=== PATIENT | female | born 1975 | race Hispanic/Latino ===

== ENCOUNTER 2017-01-26 19:12 | Emergency (ER) | payer MEDICAID, OTHER ==
[2017-01-26 19:59] LABS: Basophils % (Auto) 0.9 % (0.0-1.8); Eosinophils % (Auto) 1.6 % (0.0-4.3); Hematocrit 34.5 % (30.3-42.9); Hemoglobin 11.2 gm/dl (10.1-14.3); Mean Corpuscular HGB Conc 33 % (30-34); Mean Corpuscular Hemoglobin 27 pg (28-32); Mean Corpuscular Volume 83 fl (79-97); Platelet Count 200 K/mm3 (140-440); Red Blood Count 4.17 M/mm3 (3.65-5.03); Red Cell Distribution Width 14.6 % (13.2-15.2); White Blood Count 5.5 K/mm3 (4.5-11.0)
[2017-01-26 21:05] LABS: Bilirubin,Urine NEG (Negative); Blood,Urine NEG (Negative); Ketones,Urine NEG (Negative); Leukocyte Esterase,Urine NEG (Negative); Mucus,Urine 1+ /HPF; Nitrite,Urine NEG (Negative); Protein,Urine <15 mg/dL mg/dL (Negative); Urobilinogen,Urine < 2.0 mg/dL (<2.0)
--- NOTE | 2017-01-27 10:30 | Emergency Department Report ---
HPI - General Chief Complaint: Vaginal Bleeding Time Seen by Provider: 01/27/17 10:28 - HPI HPI: PATIENT IS 16 WEEKS, , BROUGHT TO ER WITH VAGINAL BLEEDING SINCE YESTERDAY, MILD PELVIC CRAMPING. NO FEVER, NO LOSS OF AMNIOTIC FLUID. PATIENT HAS NOT YET SEEN CONCRETE GRINDER OPERATOR DURING THIS BECAUSE SHE JUST FOUND OUT 4 WEEKS AGO. SHE IS SCHEDULED TO SEE [facility] CONCRETE GRINDER OPERATOR THIS WEDNESDAY. ED Past Medical Hx - Past Medical History Previous Medical History?: Yes Hx Hypertension: No Hx Congestive Heart Failure: No Hx Diabetes: No Hx Deep Vein Thrombosis: No Hx Renal Disease: No Hx Sickle Cell Disease: No Hx Seizures: No Hx Asthma: No Hx COPD: No Hx HIV: No Additional medical history: still born November - Surgical History Past Surgical History?: Yes Additional Surgical History: cyst removal in stomach - Social History Smoking Status: Former Smoker Substance Use Type: None - Medications Home Medications: Home Medications Medication Instructions Recorded Confirmed Last Taken Type Nitrofurantoin [place]/M-Cryst 100 mg PO Q12HR #20 capsule 06/24/15 01/23/16 Unknown Rx [Macrobid CAP] Pnv with Ca,No.72/Iron/FA 1 each PO QDAY #30 tablet 06/24/15 01/23/16 1 Day Ago Rx [ Vitamin with Low Iron] ED Review of Systems ROS: Stated complaint: poss. pregnanat Other details as noted in HPI Comment: All other systems reviewed and negative Genitourinary: other (vaginal bleeding) Musculoskeletal: back pain Physical Exam - Physical Exam Vital Signs: Vital Signs 01/26/17 01/27/17 19:30 04:11 Temperature 98.8 F 98.2 F Pulse Rate 73 62 Respiratory 18 18 Rate Blood Pressure 107/59 104/59 O2 Sat by Pulse 99 100 Oximetry Physical Exam: vitals reviewed gen: alert and oriented x3 heent: perrla, eomi cv: rrr, nl s1, s2 lungs: cta bila abd: s,nt,nd, pos bs ext: no edema gu: no vaginal bleeding, physiologic discharge neuro: no deficits psych: normal mood, skin-normal turgor ED Course Vital Signs 01/26/17 01/27/17 19:30 04:11 Temperature 98.8 F 98.2 F Pulse Rate 73 62 Respiratory 18 18 Rate Blood Pressure 107/59 104/59 O2 Sat by Pulse 99 100 Oximetry ED Medical Decision Making - Lab Data Result diagrams: 01/26/17 19:44 Critical care attestation.: If time is entered above; I have spent that time in minutes in the direct care of this critically ill patient, excluding procedure time. ED Disposition Clinical Impression: Vaginal bleeding during , antepartum Disposition: DC-01 TO HOME OR SELFCARE Is pt being admited?: No Does the pt Need Aspirin: No Condition: Stable Referrals: PRIMARY CAREMD [Primary Care Provider] - 3-5 Days TEREZA CAMACHO MD [Referring] - 3-5 Days
--- NOTE | 2017-01-27 11:31 | Ultrasound Report ---
OB ultrasound: Vaginal bleeding. Uterus measures approximately 8.9 x 11.4 x 10.1 cm. Both ovaries are identified. The right measures 15 mm and the left 25 mm in maximum size. No abnormality noted. There is a bagley intrauterine gestation. The crown-rump length is 48.6 mm equivalent to 11 week 4 day gestation. There is heart motion of 144 beats per minute. Fundal placenta. The fetus has a cystic hygroma with nuchal lucency of 8 mm. There is a short femur length and the legs appear abnormal with a frog-leg configuration. Impression: Viable fetus with abnormal features as described above.
[2017-01-27 12:25] VITALS: BP 127/55
== END 2017-01-27 12:34 | disposition home or self-care (01) ==
LOC: ED 19:12
DX: O20.9 Hemorrhage in early pregnancy, unspecified (principal); Z3A.01 Less than 8 weeks gestation of pregnancy; Z87.891 Personal history of nicotine dependence
CPT/HCPCS: 36415; 76801; 81001; 84702; 85025; 86850; 86900; 86901

== ENCOUNTER 2017-04-23 03:12 | Inpatient (IN) | payer BC ==
[2017-04-23] MEDS ORDERED: LACTATED RINGERS 1,000 ML IV ONE (03:17)
[2017-04-23 03:49] LABS: Bilirubin,Urine NEG (Negative); Blood,Urine NEG (Negative); Ketones,Urine NEG (Negative); Leukocyte Esterase,Urine NEG (Negative); Mucus,Urine 2+ /HPF; Nitrite,Urine NEG (Negative); Protein,Urine <15 mg/dL mg/dL (Negative)
--- NOTE | 2017-04-23 05:41 | Ultrasound Report ---
FINAL REPORT PROCEDURE: US OB BPP WO NON-STRESS TECHNIQUE: Real-time limited sonographic examination was performed for evaluation of size, position, heartbeat, fluid volume for each fetus with image documentation (1 or more fetuses). CPT 83716 HISTORY: bleeding COMPARISON: No prior studies are available for comparison. FINDINGS: Biophysical profile: breathing movements: 2. movements: 2. posterior and tone: 2. Qualitative amniotic fluid volume: 2. Total score: 8/8. heart rate is 152 beats per minute. . IMPRESSION: Normal biophysical profile.
--- NOTE | 2017-04-23 05:59 | Ultrasound Report ---
FINAL REPORT PROCEDURE: US OB LIMITED TECHNIQUE: Real-time limited sonographic examination was performed for evaluation of size, position, heartbeat, fluid volume for each fetus with image documentation (1 or more fetuses). CPT 13200 HISTORY: vag bleeding; r/o abruption; LEAH; cervical length COMPARISON: No prior studies are available for comparison. FINDINGS: There is a single live intrauterine gestation. Placenta is right lateral without previa. There is an area of nonspecific increased vascularity posterior to the placenta measuring 6 x 1.7 x 1.8 centimeters. However, there is no evidence of placental abruption or retroplacental hemorrhage. Findings could represent prominent retroplacental complex. Placenta accreta not excluded. The heart rate is 152 beats per minute. Cervix measures 3.7 centimeters in length and is closed. Amniotic fluid index is 22.5 centimeters. IMPRESSION: Placenta is right lateral without previa. There is an area of nonspecific increased vascularity posterior to the placenta measuring 6 x 1.7 x 1.8 centimeters. However, there is no evidence of placental abruption or retroplacental hemorrhage. Findings could represent prominent retroplacental complex. Placenta accreta not excluded. Arterial venous malformation also considered less likely but not excluded. Amniotic fluid index is 22.5 centimeters. The cervix is closed. There is no endocervical fluid. There is no evidence of distress.
--- NOTE | 2017-04-23 06:38 | History and Physical Report ---
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 Patient with complaint of painless vaginal bleeding last night, no contraction but has had mild cramping since had amniocentesis performed 1 week ago. Sonogram obtained shows: Placenta is right lateral without previa. They is an area of nonspecific increased vascularity posterior to the placenta measuring 6 cm x 2 cm. However no evidence of abruption or retroplacental hemorrhage. Findings could represent permanent atrial peritoneal complex. Placenta accreta not excluded. Arteriall venous malformation also considered less likely but not excluded. 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 denies: gonorrhea, hepatitis B, hepatitis C, herpes, HIV, syphilis, trichomonas Social history: single, full code. denies: smoking, alcohol abuse, prescription drug abuse, IV drug use - Obstetrical History Expected Date of Delivery: 08/13/17 Actual Gestation: 24 Week(s) 0 Day(s) : 6 Para: 5 Medications and Allergies Allergies Allergy/AdvReac Type Severity Reaction Status Date / Time aspirin Allergy Rash Verified 01/07/16 17:31 Home Medications Medication Instructions Recorded Confirmed Last Taken Type Pnv,Calcium 72/Iron/Folic Acid 1 each PO QDAY #30 tablet 06/24/15 04/23/1704/22 Rx [ Vitamin with Low Iron] Ergocalciferol(Vitamin D2)(Nf) 400 unit PO DAILY 04/23/17 04/23/17 04/22/17 History [Vitamin D (Nf)] Ferrous Sulfate [Feosol] 325 mg PO QDAY 04/23/17 04/23/17 04/22/17 History Nitrofurantoin [place]/M-Cryst 100 mg PO BID 04/23/17 04/23/17 04/22/17 History [Macrobid CAP] Review of Systems Constitutional: no fever, no chills, no anorexia, no lethargy, no chronic headaches Cardiovascular: no chest pain, no orthopnea, no syncope, no dyspnea on exertion , no high blood pressure Respiratory: no cough with sputum, no hemoptysis, no shortness of breath, no dyspnea on exertion Gastrointestinal: no abdominal pain, no nausea, no vomiting, no diarrhea, no indigestion Genitourinary: no vaginal bleeding, no vaginal discharge, no leakage of fluid, no contractions - Vital Signs Vital signs: Vital Signs Temp Resp 98.2 F 16 04/23/17 03:23 04/23/17 03:23 Temp Pulse Resp BP Pulse Ox 98.2 F 69 16 109/67 100 04/23/17 03:23 04/23/17 05:11 04/23/17 03:23 04/23/17 05:11 04/23/17 04:56 - Physical Exam Abdomen: Positive: normal appearance, soft. Negative: distention, tenderness, guarding, rigidity Genitourinary (Female): Positive: normal external genitalia Uterus: Positive: enlarged. Negative: tender Extremities: Positive: normal Results Result Diagrams: 04/23/17 07:30 All other labs normal. Assessment and Plan A: 41-year-old at 24 weeks with painless vaginal bleeding -Ca 1 tracing Issues -Sonogram findings suspicious for accreta -BPP 01/19 -CL ~ >3.5 -Grandmultit -AMA P: -Admit for observation -MFM consult -Will ask radiology in the a.m. to review for possible further testing including MRI - Patient Problems (1) 24 weeks gestation of Current Visit: Yes Status: Acute (2) Vaginal bleeding in Current Visit: Yes Status: Acute
[2017-04-23] MEDS ORDERED: COLACE PO PRN (06:43)
[2017-04-23] MEDS ORDERED: MYLICON PO PRN (06:43)
[2017-04-23] MEDS ORDERED: ZOFRAN IV PRN (06:43)
[2017-04-23] MEDS ORDERED: ALUM-MAG HYDROX-SIMETH 200-200-20MG/5ML PO PRN (06:43)
[2017-04-23] MEDS ORDERED: TYLENOL PO PRN (06:43)
[2017-04-23] MEDS ORDERED: D5LR 1,000 ML IV SCH (07:00)
[2017-04-23] MEDS ORDERED: CELESTONE SOLUSPAN IM SCH (08:00)
[2017-04-23 08:14] LABS: Eosinophils % (Auto) 2.4 % (0.0-4.3); Hematocrit 32.8 % (30.3-42.9); Hemoglobin 11.1 gm/dl (10.1-14.3); Mean Corpuscular HGB Conc 34 % (30-34); Mean Corpuscular Hemoglobin 28 pg (28-32); Mean Corpuscular Volume 83 fl (79-97); Platelet Count 173 K/mm3 (140-440); Red Blood Count 3.98 M/mm3 (3.65-5.03); Red Cell Distribution Width 14.8 % (13.2-15.2); White Blood Count 5.2 K/mm3 (4.5-11.0)
[2017-04-23 08:24] LABS: INR 0.94 (0.87-1.13); Partial Thromboplastin Time 27.1 Sec. (24.2-36.6)
[2017-04-23 08:30] LABS: Alanine Aminotransferase 7 units/L (7-56); Albumin 3.6 g/dL (3.9-5); Albumin/Globulin Ratio 1.1 %; Alkaline Phosphatase 49 units/L (35-129); Anion Gap 15 mmol/L; BUN/Creatinine Ratio 20; Blood Urea Nitrogen 6 mg/dL (7-17); Calcium 8.3 mg/dL (8.4-10.2); Carbon Dioxide 24 mmol/L (22-30); Chloride 103.4 mmol/L (98-107); Glucose 81 mg/dL (65-100); Potassium 3.6 mmol/L (3.6-5.0); Sodium 139 mmol/L (137-145)
[2017-04-23] MEDS: PRENATAL VITAMIN PO SCH (08:44)
--- NOTE | 2017-04-23 09:38 | Progress Note ---
Assessment and Plan - Patient Problems (1) 24 weeks gestation of Current Visit: Yes Status: Acute Plan to address problem: monitoring. Monitor for bleeding. Steroid was given. [facility] consult. NICU consult. (2) Vaginal bleeding Current Visit: Yes Status: Acute Plan to address problem: Bleeding has stopped. F/U H/H. (3) Trisomy 18 of fetus in current Current Visit: Yes Status: Acute Qualifiers: Fetus number: F Plan to address problem: Pateint was contacted by [facility] about the amnio result. Patient has not discussed any plan for the yet. Subjective - Subjective Date of service: 04/23/17 Principal diagnosis: Vaginal Bleeding at 24 weeks. Interval history: Patient is a 41 year old who is at 24 weeks gestation who presented to the floor complaining of sudden-onset of vaginal bleeding at around 2 AM today. She denies any contraction or fluid leakage. She reports good movement. Sonogram showed SIUP, a 6 cm vascular structure behind the placenta and no evidence of abruption. The bleeding has stopped since admission. patient did receive steroid for FLM. [facility] consult was called. Objective - Vital Signs Vital Signs: Vital Signs - 12hr 04/23/17 04/23/17 04/23/17 03:23 03:26 03:27 Temperature 98.2 F Pulse Rate 74 76 Respiratory 16 Rate Blood Pressure 108/66 O2 Sat by Pulse 98 Oximetry 04/23/17 04/23/17 04/23/17 03:31 03:36 03:41 Temperature Pulse Rate 71 75 84 Respiratory Rate Blood Pressure O2 Sat by Pulse 98 98 98 Oximetry 04/23/17 04/23/17 04/23/17 03:46 03:51 03:56 Temperature Pulse Rate 77 77 75 Respiratory Rate Blood Pressure O2 Sat by Pulse 98 98 98 Oximetry 04/23/17 04/23/17 04/23/17 04:01 04:06 04:11 Temperature Pulse Rate 77 78 77 Respiratory Rate Blood Pressure O2 Sat by Pulse 98 98 98 Oximetry 04/23/17 04/23/17 04/23/17 04:16 04:21 04:26 Temperature Pulse Rate 78 74 71 Respiratory Rate Blood Pressure O2 Sat by Pulse 98 98 99 Oximetry 04/23/17 04/23/17 04/23/17 04:31 04:36 04:41 Temperature Pulse Rate 65 69 78 Respiratory Rate Blood Pressure O2 Sat by Pulse 99 100 98 Oximetry 04/23/17 04/23/17 04/23/17 04:46 04:51 04:54 Temperature Pulse Rate 73 67 75 Respiratory Rate Blood Pressure O2 Sat by Pulse 98 99 89 Oximetry 04/23/17 04/23/17 04/23/17 04:56 05:11 08:43 Temperature Pulse Rate 69 69 76 Respiratory Rate Blood Pressure 109/67 115/56 O2 Sat by Pulse 100 Oximetry 04/23/17 08:49 Temperature 99.1 F Pulse Rate Respiratory 16 Rate Blood Pressure O2 Sat by Pulse Oximetry - Exam Cardiovascular: Normal S1, Normal S2 Lungs: Clear to auscultation Vulva: both: normal FHR: category 1 Uterine Contraction Monitor Mode: External - Labs Labs: Abnormal Labs 04/23/17 07:30 BUN 6 L Creatinine 0.3 L Calcium 8.3 L Albumin 3.6 L Laboratory Results - last 24 hr 04/23/17 04/23/17 04/23/17 03:25 07:30 07:30 WBC 5.2 RBC 3.98 Hgb 11.1 Hct 32.8 MCV 83 MCH 28 MCHC 34 RDW 14.8 Plt Count 173 Lymph % (Auto) 22.7 [place] % (Auto) 6.9 Eos % (Auto) 2.4 Baso % (Auto) 1.0 Lymph # 1.2 [place] # 0.4 Eos # 0.1 Baso # 0.0 Seg Neutrophils % 67.0 Seg Neutrophils # 3.5 PT 13.0 INR 0.94 APTT 27.1 Sodium Potassium Chloride Carbon Dioxide Anion Gap BUN Creatinine Estimated GFR BUN/Creatinine Ratio Glucose Calcium Total Bilirubin AST ALT Alkaline Phosphatase Total Protein Albumin Albumin/Globulin Ratio Urine Color Yellow Urine Turbidity Clear Urine pH 6.0 Ur Specific [place] 1.023 Urine Protein <15 mg/dl Urine Glucose (UA) Neg Urine Ketones Neg Urine Blood Neg Urine Nitrite Neg Urine Bilirubin Neg Urine Urobilinogen 2.0 Ur Leukocyte Esterase Neg Urine WBC (Auto) 1.0 Urine RBC (Auto) 1.0 U Epithel Cells (Auto) 4.0 Hyaline Casts 1 Urine Mucus 2+ Blood Type Antibody Screen 04/23/17 04/23/17 07:30 07:30 WBC RBC Hgb Hct MCV MCH MCHC RDW Plt Count Lymph % (Auto) [place] % (Auto) Eos % (Auto) Baso % (Auto) Lymph # [place] # Eos # Baso # Seg Neutrophils % Seg Neutrophils # PT INR APTT Sodium 139 Potassium 3.6 Chloride 103.4 Carbon Dioxide 24 Anion Gap 15 BUN 6 L Creatinine 0.3 L Estimated GFR > 60 BUN/Creatinine Ratio 20 Glucose 81 Calcium 8.3 L Total Bilirubin 0.30 AST 14 ALT 7 Alkaline Phosphatase 49 Total Protein 7.0 Albumin 3.6 L Albumin/Globulin Ratio 1.1 Urine Color Urine Turbidity Urine pH Ur Specific [place] Urine Protein Urine Glucose (UA) Urine Ketones Urine Blood Urine Nitrite Urine Bilirubin Urine Urobilinogen Ur Leukocyte Esterase Urine WBC (Auto) Urine RBC (Auto) U Epithel Cells (Auto) Hyaline Casts Urine Mucus Blood Type A POSITIVE Antibody Screen Negative
--- NOTE | 2017-04-23 10:00 | Consultation ---
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 Patient with complaint of painless vaginal bleeding last night, no contraction but has had mild cramping since had amniocentesis performed 1 week ago. She denies any contraction or fluid leakage. She reports good movement. Sonogram showed IUP + FHT of 152 bpm LEAH of 22 cm and 6 cm x 2 cm vascular structure behind the placenta and no evidence of abruption. The bleeding has stopped since admission. patient did receive steroid for FLM. Patient followed by [facility] for AMA IUGR and positive NIPT screen for Trisomy 18 . Amnio ( confirmatory testing) positive for Trisomy 18 . 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 denies: gonorrhea, hepatitis B, hepatitis C, herpes, HIV, syphilis, trichomonas - Obstetrical History : 6 Medications and Allergies Allergies Allergy/AdvReac Type Severity Reaction Status Date / Time aspirin Allergy Rash Verified 01/07/16 17:31 Home Medications Medication Instructions Recorded Confirmed Last Taken Type Pnv,Calcium 72/Iron/Folic Acid 1 each PO QDAY #30 tablet 06/24/15 04/23/1704/22 Rx [ Vitamin with Low Iron] Ergocalciferol(Vitamin D2)(Nf) 400 unit PO DAILY 04/23/17 04/23/17 04/22/17 History [Vitamin D (Nf)] Ferrous Sulfate [Feosol] 325 mg PO QDAY 04/23/17 04/23/17 04/22/17 History Nitrofurantoin [place]/M-Cryst 100 mg PO BID 04/23/17 04/23/17 04/22/17 History [Macrobid CAP] Active Meds: Active Medications Acetaminophen (Tylenol) 650 mg PO Q4H PRN PRN Reason: Pain MILD(1-3)/Fever >100.5/DUARTE Al Hydrox/Mg Hydrox/Simethicone (Alum-Mag Hydrox-Simeth [id number]/5ml) 30 ml PO Q6H PRN PRN Reason: Indigestion Betamethasone Acet/Betameth SodPhos (Celestone Soluspan) 12 mg IM Q24H [facility] Stop: 04/24/17 08:01 Last Admin: 04/23/17 08:44 Dose: 12 mg Docusate Sodium (Colace) 100 mg PO Q12H PRN PRN Reason: Constipation Dextrose/Lactated Ringer's (D5lr) 1,000 mls @ 125 mls/hr IV DIRECT [facility] Last Admin: 04/23/17 08:43 Dose: 125 mls/hr Multivitamins/Iron/Calcium ( Vitamin) 1 each PO QDAY [facility] Last Admin: 04/23/17 08:44 Dose: 1 each Ondansetron HCl (Zofran) 4 mg IV Q6H PRN PRN Reason: Nausea And Vomiting Simethicone (Mylicon) 80 mg PO Q6H PRN PRN Reason: Gas pain Review of Systems Constitutional: no fever, no chills, no sweats Eyes: no blurred vision Ears, nose, mouth and throat: deferred Cardiovascular: no palpitations, no rapid/irregular heart beat, no syncope, no shortness of breath Respiratory: no shortness of breath Breasts: deferred Gastrointestinal: no abdominal pain Genitourinary: vaginal bleeding (no vaginal bleeding since 2 am ), other (some cramping ), no vaginal discharge, no leakage of fluid, no pelvic pain Integumentary: no rash Psychiatric: no depression Hematologic/Lymphatic: no easy bruising, no easy bleeding - Vital Signs Vital signs: Vital Signs Temp Resp 98.2 F 16 04/23/17 03:23 04/23/17 03:23 Temp Pulse Resp BP Pulse Ox 99.1 F 76 16 115/56 100 04/23/17 08:49 04/23/17 08:43 04/23/17 08:49 04/23/17 08:43 04/23/17 04:56 - Physical Exam Breasts: Positive: deferred Cardiovascular: Regular rate Lungs: Positive: Normal air movement Abdomen: Negative: tenderness, guarding Uterus: Positive: other (gravid ). Negative: tender Extremities: Positive: normal - Obstetrical FHR: category 1 (for 24 weeks gestation ) Uterine Contraction Monitor Mode: External Uterine Contraction Pattern: Absent Results Result Diagrams: 04/23/17 07:30 04/23/17 07:30 Abnormal lab results 04/23/17 Range/Units 07:30 BUN 6 L (7-17) mg/dL Creatinine 0.3 L (0.7-1.2) mg/dL Calcium 8.3 L (8.4-10.2) mg/dL Albumin 3.6 L (3.9-5) g/dL All other labs normal. Ultrasound: report reviewed (Preliminary [facility] 04/23/17 SIUP + FHT of 152 bpm, LEAH of 22 cm , area of increased vascularity posterior to placenta measured 6 cm x 2 cm . BPP 01/19) Assessment and Plan A) 1. IUP @ 24.0 weeks 2. AMA 3. NIPT screened HIGH RISK for Trisomy 21 4. Amnio performed 04/15/17 - Positive Trisomy 18 5. No Vaginal bleeding since admission 6. Placenta- Increased vascularity posterior to placenta measured 6 cm x 2 cm 7. No previous C/S however lap cycystectomy 8. No contractions noted 9. Poor prognosis with Trisomy 18 10. IUGR ( per [facility] assessmernt 11. [facility] BPP 8 Plan as per Page 1. Patient may be discharge this afternoon with no vaginal bleeding 2. Discussed with patient poor prognosis with diagnosis with Trisomy 18 ( patient education provided ) 3. Patient does not need to complete BMZ 4. NICU consult prior to discharge 5. Precautions discussed
[2017-04-24 08:00] VITALS: BP 113/58
--- NOTE | 2017-04-24 08:26 | Progress Note ---
Assessment and Plan - Patient Problems (1) 24 weeks gestation of Current Visit: Yes Status: Acute Plan to address problem: Trisomy 18 fetus. Patient is aware of the poor prognosis for this . (2) Vaginal bleeding Current Visit: Yes Status: Acute Plan to address problem: Bleeding has stopped. H/H stable. Patient was advised to return to the hospital if she bleeds again, has contractions or fluid leakage. (3) Trisomy 18 of fetus in current Current Visit: Yes Status: Acute Qualifiers: Fetus number: F Plan to address problem: Patient has an appointment with [facility] nest week. She is aware of the poor prognosis. She wants to continue with the and deliver her baby. Subjective - Subjective Date of service: 04/24/17 Principal diagnosis: Vaginal Bleeding at 24 weeks. Interval history: Patient is a 41 year old who is at 24 weeks and 1 day gestation who presented to the floor complaining of sudden-onset of vaginal bleeding at around 2 AM yesterday. She denies any contraction or fluid leakage. She reports good movement. Sonogram showed SIUP, a 6 cm vascular structure behind the placenta and no evidence of abruption. The bleeding has stopped since admission. Patient did receive steroid dose #1 for FLM. [facility] consult was called. Patient's chart was not available on admission. Upon reviewing the records, it was found that patient did have a positive screening test for trisomy 18 and she had an amniocentesis last week which confirmed trisomy 18. Patient was not aware of the confirmation test on admission. [facility] [employer] consultant discussed the result with her and recommended not to give the second celestone dose. After their discussion, patient decided to continue with the and have her baby. She was told that with trisomy 18, the baby may in utero , during labor, or after . The plan is expectant management and to discharge her home if the bleeding stops. This AM, she denies any bleeding or fluid leakage. She reports good movement. She wants to go home. Objective - Vital Signs Vital Signs: Vital Signs - 12hr 04/24/17 04/24/17 04/24/17 04:52 04:54 07:57 Temperature 98.0 F 97.9 F Pulse Rate 82 71 Respiratory 16 20 Rate Blood Pressure 114/58 Blood Pressure 113/58 [Right] 04/24/17 08:02 Temperature Pulse Rate 71 Respiratory Rate Blood Pressure 113/58 Blood Pressure [Right] - Exam Cardiovascular: Normal S1, Normal S2 Lungs: Clear to auscultation FHR: category 1 - Labs Labs: Abnormal Labs 04/23/17 07:30 BUN 6 L Creatinine 0.3 L Calcium 8.3 L Albumin 3.6 L Laboratory Results - last 24 hr 04/23/17 04/23/17 04/23/17 07:30 07:30 07:30 PT 13.0 INR 0.94 APTT 27.1 Sodium 139 Potassium 3.6 Chloride 103.4 Carbon Dioxide 24 Anion Gap 15 BUN 6 L Creatinine 0.3 L Estimated GFR > 60 BUN/Creatinine Ratio 20 Glucose 81 Calcium 8.3 L Total Bilirubin 0.30 AST 14 ALT 7 Alkaline Phosphatase 49 Total Protein 7.0 Albumin 3.6 L Albumin/Globulin Ratio 1.1 RPR Nonreactive Blood Type Antibody Screen 04/23/17 07:30 PT INR APTT Sodium Potassium Chloride Carbon Dioxide Anion Gap BUN Creatinine Estimated GFR BUN/Creatinine Ratio Glucose Calcium Total Bilirubin AST ALT Alkaline Phosphatase Total Protein Albumin Albumin/Globulin Ratio RPR Blood Type A POSITIVE Antibody Screen Negative
--- NOTE | 2017-04-24 08:33 | Discharge Summary ---
Providers - Providers Date of Admission: 04/23/17 06:43 Date of discharge: 04/24/17 Attending physician: TONI DANIELSON MD 04/23/17 06:43 Consult to Physician [CONS] Routine Consulting Provider: JOSE MARTIN HERRERA I Reason For Exam: Painless vaginal bleeding Place consult to:: [employer] answering service Notified:: Mady Phone number called:: [phone] Was contact made?: Yes If yes, spoke with:: Mady Time called:: 07:30 Comment:: Stated she would contact Primary care physician: TONI DANIELSON MD Hospitalization Reason for admission: vaginal bleeding Discharge diagnosis: other (Trisomy 18, vaginal bleeding) Disposition: - TO HOME OR SELFCARE - Discharge Diagnoses (1) 24 weeks gestation of Status: Acute (2) Vaginal bleeding Status: Acute (3) Trisomy 18 of fetus in current Status: Acute Qualifiers: Fetus number: F (4) Anemia Status: Acute Qualifiers: Anemia type: A Iron deficiency anemia type: chronic blood loss Vitamin B12 deficiency anemia type: V Folate deficiency anemia type: F Bone marrow failure anemia type: B Hemolytic anemia type: H Other causes of anemia: O Chronic kidney disease stage: C Qualified Code(s): D50.0 - Iron deficiency anemia secondary to blood loss (chronic) Plan - Provider Discharge Summary Activity: no sex for 6 weeks, no heavy lifting 4 weeks, no strenuous exercise Diet: routine Instructions: routine Additional instructions: [] Smoking cessation referral if applicable(refer to patient education folder for contact #) [] Refer to [facility]'s [facility] Booklet Call your doctor immediately for: * Fever > 100.5 * Heavy vaginal bleeding ( >1 pad per hour) * Severe persistent headache * Shortness of breath * Reddened, hot, painful area to leg or breast * Drainage or odor from incision. * Keep incision clean and dry at all times and follow doctor's instructions regarding bathing/showering - Follow up plan Follow up: TONI DANIELSON MD [Primary Care Provider] - 7 Days
[2017-04-24] MEDS: PRENATAL VITAMIN PO SCH (09:19)
== END 2017-04-24 09:25 | disposition home or self-care (01) | DRG 781 ==
LOC: TRG 03:12 → LD 06:43 → TRG 06:43
PROVIDERS: ADMIT Obstetrics & Gynecology; ATTEND Obstetrics & Gynecology
DX: O46.8X2 Other antepartum hemorrhage, second trimester (principal); O99.012 Anemia complicating pregnancy, second trimester; Q91.3 Trisomy 18, unspecified; D50.0 Iron deficiency anemia secondary to blood loss (chronic); O26.892 Other specified pregnancy related conditions, second trimester; Z3A.24 24 weeks gestation of pregnancy; O35.1XX0 Maternal care for (suspected) chromosomal abnormality in fetus, not applicable or unspecified
CPT/HCPCS: 36415; 76815; 76819; 80053; 81001; 85025; 85610; 85730; 86592; 86850; 86900; 86901; J0702; J7121